=== PATIENT | female | born 1995 | race Caucasian/White ===

== ENCOUNTER 2017-01-24 17:44 | Emergency (ER) | payer OTHER ==
[~2017-01-24] VITALS: Ht 157.5 cm; Wt 59.5 kg
[~2017-01-24 17:44] MED LIST: FLUO40CA8 PO; MELA3TAB7 PO; UNKNOWN MED
[2017-01-24 17:47] VITALS: TEMP 36.7; Ht 157.5 cm; Wt 59.5 kg
[2017-01-24] MEDS ORDERED: SODIUM CHLORIDE 0.9% 1000ML 1,000 ML IV STA (17:58)
[2017-01-24] MEDS ORDERED: SODIUM CHLORIDE 0.9% 1000ML 1,000 ML IV ONE (17:58)
[2017-01-24] MEDS ORDERED: OPTIRAY 320 IV PRN (18:15)
--- NOTE | 2017-01-24 18:15 | EMERGENCY ROOM VISIT NOTE ---
History Report prepared by Dyan: Salome Das Under the Supervision of: Dr. Ravinder Barajas M.D. First contact with patient: 17:50 Chief Complaint: ABDOMINAL PAIN Stated Complaint: LF SIDE ABD HERNIA History of Present Illness The patient is a 21 year old female who presents to the Emergency Room with complaints of constant LLQ abdominal pain for the past month. She has a hernia in her left lower abdomen which was found when her appendix was removed. She has been having pain there intermittently, but recently her hernia seems more inflamed and painful. 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 Since then she has been having more pain. She describes her pain as burning. It worsens with heavy lifting. She reports some chills, dysuria, and warmth around her hernia. She denies any rash, fever, redness, or hematuria. She denies any injury. She denies any chance of . She is currently on her period. She has some chronic back pain which she was told is the start of scoliosis. She has a history of depression and anxiety which she currently takes medications for. She denies any thoughts of hurting herself recently. Source of History: patient, family Onset: 1 month Position: abdomen (LLQ) Quality: burning Timing: constant Modifying Factors (Worsening): other (heavy lifting) Associated Symptoms: + chills, No fevers, No rash Note: Pt reports dysuria, warmth around hernia. Pt denies redness around hernia or hematuria. Review of Systems See HPI for pertinent positives & negatives. A total of 10 systems reviewed and were otherwise negative. Past Medical & Surgical Medical Problems: (1) Anxiety (2) Depression Old medical records were attempted to be reviewed but there are no old records at this hospital. Nurse's notes were reviewed and I agree with. Family History No pertinent family history stated. Social History Smoking Status: Current Every Day Smoker Drug Use: none Occupation Status: employed Current/Historical Medications Scheduled Acetaminophen (Tylenol), Unknown Dose PO DIRECTED Clonazepam (Klonopin), 1 MG PO BID Doxepin (Sinequan), 30 MG PO BID Scheduled PRN Ibuprofen (Midol), Unknown Dose PO DIRECTED PRN for CRAMPS Allergies Coded Allergies: No Known Allergies (Unverified , 01/24/17) Physical Exam Vital Signs Date Time Temp Pulse Resp B/P (MAP) Pulse Ox O2 Delivery O2 Flow Rate FiO2 01/24/17 20:55 91 16 119/77 99 01/24/17 20:03 94 16 121/53 96 Room Air 01/24/17 17:47 36.7 78 20 123/87 97 Room Air Physical Exam General: Non ill appearing slender young female. Well developed well nourished in no acute distress, breathing comfortably on room air. Normal speech HEENT: Normal cephalic atraumatic. Pupils are equal round and reactive to light. Extraocular movements are intact. Oropharynx is pink with moist mucous membranes. No swelling of the mouth lips or tongue. Neck: Supple with a midline trachea. No meningeal signs or stiffness, no JVD or bruits. No Stridor. Chest: Clear to auscultation bilaterally. No wheezes or rhonchi. No increased work of breathing. Heart: regular rate and rhythm. Abdomen: Soft, tenderness to palpation to the left lower abdomen, no masses or hernia felt, nondistended without rebound guarding or rigidity. Extremities: No cyanosis clubbing or edema. No calf tenderness or assymetry Spine/Back. Non tender to palpation. No CVA tenderness Skin: Good turgor without rashes. Neurologic exam: Cranial nerves two through 12 are intact. Motor and sensation are intact and symmetrical throughout. Medical Decision & Procedures ER Provider Diagnostic Interpretation: Radiology results as stated below per my review and radiologist interpretation: CT ABD/PELVIS IV CONTRAST ONLY CLINICAL HISTORY: Left lower quadrant abdominal pain. Possible hernia COMPARISON STUDY: None. TECHNIQUE: Following the IV administration of 94 mL of Optiray-320, CT scan of the abdomen and pelvis was performed from the lung bases to the proximal femurs. Images are reviewed in the axial, sagittal, and coronal planes. IV contrast was administered without complication. CT DOSE: 281.66 mGy.cm FINDINGS: Lower chest: The heart is normal in size and configuration, without pericardial effusion. The lung bases and pleural spaces are clear. Liver: The contrast-enhanced liver is normal in size, contour, and attenuation. There is no intrahepatic biliary ductal dilatation. The hepatic veins and portal veins are patent. Gallbladder: Contracted Spleen: Normal in size and attenuation. Pancreas: Unremarkable. Adrenal glands: Unremarkable. Kidneys: There is a 6 mm left upper pole renal hypodensity, statistically representing a cyst. Bowel: There are no transition zones to indicate bowel obstruction. There are surgical clips at the cecal level. The appendix is not visualized. There is no acute diverticulitis. Peritoneum: There is no intraperitoneal free air or abdominal ascites. There is a tiny fat-containing umbilical hernia. Vasculature: The abdominal aorta is normal in course and caliber. Adenopathy: None. Pelvic viscera: The bladder, and pelvic viscera are unremarkable. Skeletal structures: No destructive osseous lesions are seen. IMPRESSION: 1. No evidence of bowel obstruction. No evidence of free air 2. No evidence of acute diverticulitis 3. Nonvisualization of the appendix, but no evidence of acute appendicitis 4. Tiny fat-containing umbilical hernia of doubtful significance Electronically signed by: Adolfo Doherty M.D. 01/24/2017 8:06 PM Dictated Date/Time: 01/24/2017 8:02 PM Laboratory Results 01/24/17 18:15 Red Blood Count 4.83, Mean Corpuscular Volume 90.7, Mean Corpuscular Hemoglobin 31.5, Mean Corpuscular Hemoglobin Concent 34.7, Mean Platelet Volume 10.4, Neutrophils (%) (Auto) 55.9, Lymphocytes (%) (Auto) 33.3, Monocytes (%) (Auto) 7.4, Eosinophils (%) (Auto) 2.8, Basophils (%) (Auto) 0.4, Neutrophils # (Auto) 4.54, Lymphocytes # (Auto) 2.70, Monocytes # (Auto) 0.60, Eosinophils # (Auto) 0.23, Basophils # (Auto) 0.03 01/24/17 18:15 Test 01/24/17 18:15 White Blood Count 8.12 K/uL (4.8-10.8) Red Blood Count 4.83 M/uL (4.2-5.4) Hemoglobin 15.2 g/dL (12.0-16.0) Hematocrit 43.8 % (37-47) Mean Corpuscular Volume 90.7 fL (80-100) Mean Corpuscular Hemoglobin 31.5 pg (25-34) Mean Corpuscular Hemoglobin Concent 34.7 g/dl (32-36) Platelet Count 245 K/uL (130-400) Mean Platelet Volume 10.4 fL (7.4-10.4) Neutrophils (%) (Auto) 55.9 % Lymphocytes (%) (Auto) 33.3 % Monocytes (%) (Auto) 7.4 % Eosinophils (%) (Auto) 2.8 % Basophils (%) (Auto) 0.4 % Neutrophils # (Auto) 4.54 K/uL (1.4-6.5) Lymphocytes # (Auto) 2.70 K/uL (1.2-3.4) Monocytes # (Auto) 0.60 K/uL (0.11-0.59) Eosinophils # (Auto) 0.23 K/uL (0-0.5) Basophils # (Auto) 0.03 K/uL (0-0.2) RDW Standard Deviation 41.8 fL (36.4-46.3) RDW Coefficient of Variation 12.5 % (11.5-14.5) Immature Granulocyte % (Auto) 0.2 % Immature Granulocyte # (Auto) 0.02 K/uL (0.00-0.02) Urine Color YELLOW Urine Appearance CLEAR (CLEAR) Urine pH 7.0 (4.5-7.5) Urine Specific [place] 1.024 (1.000-1.030) Urine Protein NEG (NEG) Urine Glucose (UA) NEG (NEG) Urine Ketones NEG (NEG) Urine Occult Blood TRACE (NEG) Urine Nitrite NEG (NEG) Urine Bilirubin NEG (NEG) Urine Urobilinogen NEG (NEG) Urine Leukocyte Esterase NEG (NEG) Urine WBC (Auto) 1-5 /hpf (0-5) Urine RBC (Auto) 5-10 /hpf (0-4) Urine Hyaline Casts (Auto) 0 /lpf (0-5) Urine Epithelial Cells (Auto) 20-30 /lpf (0-5) Urine Bacteria (Auto) NEG (NEG) Anion Gap 3.0 mmol/L (3-11) Est Creatinine Clear Calc Drug Dose 102.0 ml/min Estimated GFR () 144.2 Estimated GFR (Non- 124.4 BUN/Creatinine Ratio 20.9 (10-20) Calcium Level 9.3 mg/dl (8.5-10.1) Total Bilirubin 1.5 mg/dl (0.2-1) Direct Bilirubin 0.2 mg/dl (0-0.2) Aspartate Amino Transf (AST/SGOT) 17 U/L (15-37) Alanine Aminotransferase (ALT/SGPT) 23 U/L (12-78) Alkaline Phosphatase 104 U/L (45-117) Total Protein 8.1 gm/dl (6.4-8.2) Albumin 4.2 gm/dl (3.4-5.0) Lipase 81 U/L (73-393) Human Chorionic Gonadotropin, Qual NEG (NEG) Laboratory studies as stated above per my review. Medications Administered Medications (Trade) Dose Ordered Sig/Merary Route Start Time Stop Time Status Last Admin Dose Admin Sodium Chloride 1,000 ml @ 999 mls/hr Q1H1M STAT IV 01/24/17 17:58 01/24/17 18:58 DC 01/24/17 18:18 999 MLS/HR ED Course 1752: Past medical records reviewed. The patient was evaluated in room B3B, and a complete history and physical examination were performed. 1757: NSS 1000 ml @ 150 mls/hr IV, NSS 1000 ml @ 999 mls/hr IV. 2042: Upon reevaluation, the patient is resting comfortably. I discussed the results and treatment plan with her. She verbalized agreement of the treatment plan. The patient was discharged home. Medical Decision Differentials include, but are not limited to; hernia, diverticulitis, , electrolyte or metabolic abnormality. This patient comes in as described above. Her sister is also being seen here as a patient and she wanted to get checked out . She has had left lower quadrant pain for several months that is is constant and is worse with moving she tells me she was told she had a hernia in the past when they did an appendectomy. On exam, she is mildly tender in the left lower quadrant but is no redness or warmth or definite hernia felt. IV access established blood work was obtained urinalysis and culture was obtained a CAT scan was also ordered. I explained the risks and the benefits as well and the patient and her family member freely consented. She has no white count or fever to suggest infection. She is not . She has nothing to suggest a urinary tract infection or urinary process. CAT scan of her abdomen was unremarkable there is a minimal umbilical fat containing hernia. This is of doubtful clinical significance and she's not tender there. I will follow-up with her regular doctor use ibuprofen for pain. return if: increasing pain, worsening of symptoms, any new problems or concerns. She was happy with plan and discharged to home. Medication Reconciliation: I attest that I have personally reviewed the patient' s current medication list. Blood pressure Screening: Patient was found to have normal blood pressure on screening and does not require follow-up. Impression Primary Impression: LLQ abdominal pain Scribe Attestation The scribe's documentation has been prepared under my direction and personally reviewed by me in its entirety. I confirm that the note above accurately reflects all work, treatment, procedures, and medical decision making performed by me. Departure Information Dispostion Home / Self-Care Referrals No Doctor, Assigned (PCP) Forms HOME CARE DOCUMENTATION FORM, IMPORTANT VISIT INFORMATION Patient Instructions [facility] Additional Instructions Rest. Drink plenty of fluids. Use ibuprofen 400 mg every 6 hours as needed for pain take with food Return if: Increasing pain, worsening symptoms, fever or chills, any new problems or concerns. Follow-up with your doctor this week for recheck
[2017-01-24 18:29] LABS: BASO % 0.4 %; BASO ABS # 0.03 K/uL (0-0.2); COMPLETE YES; EOS % 2.8 %; HEMATOCRIT 43.8 % (37-47); IG% 0.2 %; LYMPH % 33.3 %; MEAN CELL VOLUME 90.7 fL (80-100); MEAN CORPUSCULAR HEMOGLOBIN 31.5 pg (25-34); MEAN CORPUSCULAR HGB CONC 34.7 g/dl (32-36); MEAN PLATELET VOLUME 10.4 fL (7.4-10.4); MONO % 7.4 %; NEUT % 55.9 %; PLATELET COUNT 245 K/uL (130-400); RED BLOOD COUNT 4.83 M/uL (4.2-5.4); WHITE BLOOD COUNT 8.12 K/uL (4.8-10.8)
[2017-01-24] MEDS ORDERED: DOXE10CA PO (18:46)
[2017-01-24] MEDS ORDERED: CLON1TAB3 PO (18:46)
[2017-01-24] MEDS ORDERED: IBUP1CAP PO (18:46)
[2017-01-24] MEDS ORDERED: ACET-1256 PO (18:46)
[2017-01-24 18:48] LABS: URINE APPEARANCE CLEAR (CLEAR); URINE BILIRUBIN NEG (NEG); URINE COLOR YELLOW; URINE EPITHELIAL CELL AUTO 20-30 /lpf (0-5); URINE NITRITE NEG (NEG); URINE SPECIFIC GRAVITY 1.024 (1.000-1.030); UROBILINOGEN NEG (NEG)
[2017-01-24 18:49] LABS: MANUAL MICROSCOPIC REQUIRED? NO; REVIEW REQ? NO
[2017-01-24 18:58] LABS: BUN/CREATININE RATIO 20.9 (10-20); CALCIUM 9.3 mg/dl (8.5-10.1); CREATININE 0.69 mg/dl (0.60-1.20); POTASSIUM 3.5 mmol/L (3.5-5.1)
[2017-01-24 19:07] LABS: PREG INTERNAL NEGATIVE QC NEG CLEAR BACKGROUND; PREG INTERNAL POSITIVE QC POS CONTROL LINE
--- NOTE | 2017-01-24 20:07 | DIAGNOSTIC IMAGING REPORT ---
CT ABD/PELVIS IV CONTRAST ONLY CLINICAL HISTORY: Left lower quadrant abdominal pain. Possible hernia COMPARISON STUDY: None. TECHNIQUE: Following the IV administration of 94 mL of Optiray-320, CT scan of the abdomen and pelvis was performed from the lung bases to the proximal femurs. Images are reviewed in the axial, sagittal, and coronal planes. IV contrast was administered without complication. CT DOSE: 281.66 mGy.cm FINDINGS: Lower chest: The heart is normal in size and configuration, without pericardial effusion. The lung bases and pleural spaces are clear. Liver: The contrast-enhanced liver is normal in size, contour, and attenuation. There is no intrahepatic biliary ductal dilatation. The hepatic veins and portal veins are patent. Gallbladder: Contracted Spleen: Normal in size and attenuation. Pancreas: Unremarkable. Adrenal glands: Unremarkable. Kidneys: There is a 6 mm left upper pole renal hypodensity, statistically representing a cyst. Bowel: There are no transition zones to indicate bowel obstruction. There are surgical clips at the cecal level. The appendix is not visualized. There is no acute diverticulitis. Peritoneum: There is no intraperitoneal free air or abdominal ascites. There is a tiny fat-containing umbilical hernia. Vasculature: The abdominal aorta is normal in course and caliber. Adenopathy: None. Pelvic viscera: The bladder, and pelvic viscera are unremarkable. Skeletal structures: No destructive osseous lesions are seen. IMPRESSION: 1. No evidence of bowel obstruction. No evidence of free air 2. No evidence of acute diverticulitis 3. Nonvisualization of the appendix, but no evidence of acute appendicitis 4. Tiny fat-containing umbilical hernia of doubtful significance Electronically signed by: Adolfo Doherty M.D. 01/24/2017 8:06 PM Dictated Date/Time: 01/24/2017 8:02 PM
[2017-01-24 20:55] VITALS: BP 119/77; PULSE 91; O2SAT 99
== END 2017-01-24 20:57 | disposition home or self-care (01) ==
LOC: MERGE 17:46 → C.EDB 17:46 → EDBD 17:46 → C.EDB 20:57
DX: R10.32 Left lower quadrant pain (principal); F41.9 Anxiety disorder, unspecified; F32.9 Major depressive disorder, single episode, unspecified; F17.200 Nicotine dependence, unspecified, uncomplicated

== ENCOUNTER → 2017-01-29 | Outpatient (CLI) | payer OTHER ==
[~2017-01-29] MED LIST changes: +ACET-1256 PO; +CLON1TAB3 PO; +DOXE10CA PO; +IBUP1CAP PO
== END | disposition home or self-care (01) ==
LOC: C.LAB 05:12
DX: Z02.83 Encounter for blood-alcohol and blood-drug test (principal)